=== PATIENT | male | born 1995 | race Caucasian/White ===

== ENCOUNTER 2023-05-22 16:32 | Emergency (ER) | payer MEDICAID ==
[~2023-05-22] VITALS: Ht 170.2 cm; Wt 111.8 kg
[2023-05-22 16:43] VITALS: TEMP 98.1
[2023-05-22] MEDS ORDERED: BENZONATATE 100 MG CAPSULE PO ONE (19:15)
[2023-05-22] MEDS ORDERED: GuaiFENesin/D-METHORPHAN [SUGAR-FREE] 200-20MG/10 ML SYRUP UDCUP PO ONE (19:15)
[2023-05-22] MEDS ORDERED: ACETAMINOPHEN 500 MG TABLET PO ONE (19:15)
[2023-05-22 19:17] LABS: COVID AG,FIA SOURCE NASAL SWAB
[2023-05-22 19:18] LABS: BASOPHILS % (AUTO) 1.3 % (0.0-2.0); EOSINOPHILS % (AUTO) 2.2 % (1.0-6.0); HEMOGLOBIN 15.6 g/dL (13.5-17.5); LYMPHOCYTES # (AUTO) 3.4 K/uL (1.0-4.8); LYMPHOCYTES % (AUTO) 32.5 % (22.0-44.0); MEAN CORPUSCULAR HEMOGLOBIN 27.8 pg (26.0-34.0); MEAN CORPUSCULAR HGB CONC 34.6 G/dL (31.0-37.0); MEAN CORPUSCULAR VOLUME 80 fL (80-100); MONOCYTES # (AUTO) 0.8 K/uL (0.1-1.0); MONOCYTES % (AUTO) 7.7 % (2.0-9.0); NEUTROPHILS # (AUTO) 5.9 K/uL (1.8-7.7); NEUTROPHILS % (AUTO) 56.3 % (40.0-70.0); PLATELET COUNT (AUTO) 330 K/uL (150-450); RED CELL DISTRIBUTION WIDTH 15.3 % (11.5-14.5); WHITE BLOOD COUNT (AUTO) 10.4 K/uL (4.5-11.0)
[2023-05-22 19:28] LABS: ANION GAP 7 mmol/L (8-16); CALCIUM, TOTAL 9.1 mg/dL (8.8-10.5); CARBON DIOXIDE 28 mmol/L (22-29); CHLORIDE 100 mmol/L (98-107); CREATININE 0.89 mg/dL (0.60-1.30); GLOMERULAR FILTR. RATE CALC > 60 mL/min (>60); GLUCOSE,RANDOM 145 mg/dL (70-110); POTASSIUM 4.2 mmol/L (3.5-5.1); SODIUM SERUM 135 mmol/L (136-145); UREA NITROGEN, BLOOD 15 mg/dL (7-18)
[2023-05-22 19:34] LABS: ALBUMIN 3.6 g/dL (3.4-5.0); ALKALINE PHOSPHATASE 122 U/L (46-116); ASPARTATE AMINOTRANSFERASE 32 U/L (15-37); BILIRUBIN,TOTAL 0.3 mg/dL (0.1-1.0)
[2023-05-22 19:38] LABS: SARS-COV2 (COVID) ANTIGEN,FIA Negative (Negative)
[2023-05-22 19:54] LABS: ALANINE AMINOTRANSFERASE 66 U/L (12-78)
[2023-05-22 20:00] VITALS: BP 120/88; PULSE 86; RESP 16
[2023-05-22] MEDS ORDERED: ACET-66 PO (20:13)
[2023-05-22] MEDS ORDERED: GUAIFDM PO (20:13)
== END 2023-05-22 22:23 | disposition home or self-care (01) ==
LOC: EMS 16:33
DX: J20.9 Acute bronchitis, unspecified (principal); J06.9 Acute upper respiratory infection, unspecified; K21.9 Gastro-esophageal reflux disease without esophagitis; Z20.822 Contact with and (suspected) exposure to COVID-19
CPT/HCPCS: 71045; 80053; 85025; 99284; 36415-L1; 36415-TC

== ENCOUNTER 2023-10-23 23:17 | Emergency (ER) | payer MEDICAID, OTHER ==
[~2023-10-23] VITALS: Ht 167.6 cm; Wt 108.6 kg
[~2023-10-23 23:17] MED LIST: ACET-66 PO; GUAIFDM PO
[2023-10-24 00:58] VITALS: BP 131/67; PULSE 99; RESP 18; TEMP 97.7
[2023-10-24] MEDS ORDERED: GUAI1TBM19 PO (01:06)
[2023-10-24] MEDS: ACETAMINOPHEN 500 MG TABLET PO ONE (01:14)
[2023-10-24] MEDS: GuaiFENesin/D-METHORPHAN [SUGAR-FREE] 200-20MG/10 ML SYRUP UDCUP PO ONE (01:14)
== END 2023-10-24 01:31 | disposition home or self-care (01) ==
LOC: EMS 23:18
DX: J06.9 Acute upper respiratory infection, unspecified (principal); J20.9 Acute bronchitis, unspecified; Z90.49 Acquired absence of other specified parts of digestive tract
CPT/HCPCS: 71045; 99283